=== PATIENT | female | born 1985 | race Caucasian/White ===

== ENCOUNTER 2024-08-23 08:39 | Outpatient (CLI) | payer BC ==
[2024-08-23] MEDS ORDERED: Iopamidol 370 76% 100 ML VIAL ONE (10:51)
== END 2024-08-23 08:40 | disposition home or self-care (01) ==
LOC: CSHCT 08:39
PROVIDERS: ATTEND Specialist
DX: K46.9 Unspecified abdominal hernia without obstruction or gangrene (principal); Z90.89 Acquired absence of other organs; S22.42XD Multiple fractures of ribs, left side, subsequent encounter for fracture with routine healing; S32.009D Unspecified fracture of unspecified lumbar vertebra, subsequent encounter for fracture with routine healing; K45.8 Other specified abdominal hernia without obstruction or gangrene
CPT/HCPCS: 74160; Q9967